=== PATIENT | male | born 1985 | race Hispanic/Latino ===

== ENCOUNTER → 2018-01-23 | Outpatient (CLI) | payer OTHER ==
[~2018-01-23] MED LIST: ASPI-1012 PO; DOCU-116 PO; DOXE10CA2 PO; DULO60CA63 PO; HYDR-3422 PO; HYDR-4068 PO; MORP15TA70 PO; PRAZ2CAP2 PO; TRAZ150T79 PO
== END | disposition home or self-care (01) ==
LOC: RAH 12:04
PROVIDERS: ATTEND Emergency Medicine Emergency Medical Services
DX: R51 Headache (principal); K21.9 Gastro-esophageal reflux disease without esophagitis; F41.1 Generalized anxiety disorder; G47.9 Sleep disorder, unspecified
CPT/HCPCS: 70551

== ENCOUNTER 2018-04-13 08:08 | Day surgery (SDC) | payer OTHER ==
[2018-04-12 16:03] VITALS: BP 122/90
[2018-04-12 16:08] LABS: BASOPHILS % (AUTO) 0.3 % (0.0-5.0); EOSINOPHILS % (AUTO) 1.1 % (0.0-8.0); LYMPHOCYTES % (AUTO) 23.6 % (21.0-51.0); MEAN CORPUSCULAR HEMOGLOBIN 29.1 pg (27.0-33.0); MEAN CORPUSCULAR HGB CONC 33.7 g/dL (32.0-36.0); MEAN CORPUSCULAR VOLUME 86.3 fL (79-99); PLATELET COUNT (AUTO) 287 K/uL (130-400); RED BLOOD CELL COUNT(AUTO) 5.22 MIL/uL (4.50-6.20); RED CELL DISTRIBUTION WIDTH 14.4 % (11.0-15.5); WHITE BLOOD COUNT (AUTO) 9.3 K/uL (4.8-10.8)
[2018-04-12 16:18] LABS: CREATININE 1.1 mg/dL (0.5-1.5); POTASSIUM 3.9 mmol/L (3.5-5.1)
[2018-04-13] VITALS (18 sets, daily range): BP systolic 113–138; BP diastolic 54–89
[~2018-04-13] VITALS: Ht 185.4 cm; Wt 100.6 kg
[~2018-04-13 08:08] MED LIST changes: -ASPI-1012 PO; +CEFAZOLIN 3GM /D5W 100ML 100 ML IV PRN; -DOCU-116 PO; -DOXE10CA2 PO; -DULO60CA63 PO; -HYDR-3422 PO; -MORP15TA70 PO; -PRAZ2CAP2 PO; -TRAZ150T79 PO
[2018-04-13] MEDS ORDERED: OMEP20CA10 PO (08:48)
[2018-04-13] MEDS ORDERED: LACTATED RINGERS 1000ML 1,000 ML IV ONE (08:57)
[2018-04-13] MEDS ORDERED: CEFAZOLIN SODIUM 1 GM VIAL ONE (08:58)
[2018-04-13] MEDS ORDERED: PROPOFOL 10 MG/ML 20ML VIAL IV ONE (10:26)
[2018-04-13] MEDS ORDERED: MIDAZOLAM HCL 1 MG/ML 2ML VIAL ONE (10:26)
[2018-04-13] MEDS ORDERED: FENTANYL CITRATE PF 50 MCG/1 ML 2ML VIAL ONE ×3 (10:27→11:37)
[2018-04-13] MEDS ORDERED: HYDR-305 PO (11:10)
[2018-04-13] MEDS ORDERED: NAPR-1192 PO (11:10)
[2018-04-13] MEDS ORDERED: CEPH500B PO (11:10)
[2018-04-13] MEDS ORDERED: MEPERIDINE-PF 25 MG/ML SYG ONE ×2 (11:29→12:01)
[2018-04-13] MEDS ORDERED: KETOROLAC TROMETHAMINE 30MG/ML ONE (11:43)
[2018-04-13] MEDS ORDERED: MORPHINE SULFATE 4 MG/1ML SYG ONE (11:51)
[2018-04-13] MEDS ORDERED: PROMETHAZINE HCL 25 MG/ML 1ML AMPULE IM ONE (12:02)
== END 2018-04-13 13:54 | disposition home or self-care (01) ==
LOC: DAH 08:08
PROVIDERS: ATTEND Orthopaedic Surgery
DX: M67.51 Plica syndrome, right knee (principal); Z96.652 Presence of left artificial knee joint; Z79.891 Long term (current) use of opiate analgesic; Z79.899 Other long term (current) drug therapy; Z87.891 Personal history of nicotine dependence; Z82.49 Family history of ischemic heart disease and other diseases of the circulatory system; Z68.31 Body mass index [BMI] 31.0-31.9, adult; Z98.890 Other specified postprocedural states; E66.9 Obesity, unspecified
CPT/HCPCS: 29875; 36415; 80048; 85025; A4218; A4606; A4649 ×2; A4930; A6223; J0690; J1885; J2175 ×2; J2250; J2270; J2550; J2704; J3010 ×3; J7120

== ENCOUNTER → 2019-06-07 | Outpatient (CLI) | payer OTHER ==
[~2019-06-07] MED LIST changes: -CEFAZOLIN 3GM /D5W 100ML 100 ML IV PRN; +CEPH500B PO; -HYDR-4068 PO; +HYDR-4453 PO; +IOHEXOL 350 MG/ML 100ML INFUS..BTL IV ONE; +NAPR-1192 PO; +OMEP-50 PO
== END | disposition home or self-care (01) ==
LOC: RAH 09:53
PROVIDERS: ATTEND Family Medicine
DX: R19.7 Diarrhea, unspecified (principal); Z90.49 Acquired absence of other specified parts of digestive tract
CPT/HCPCS: 74170; Q9967

== ENCOUNTER 2021-07-25 01:13 | Emergency (ER) | payer OTHER ==
[~2021-07-25] VITALS: Ht 182.9 cm; Wt 99.8 kg
[~2021-07-25 01:13] MED LIST changes: -IOHEXOL 350 MG/ML 100ML INFUS..BTL IV ONE; -OMEP-50 PO; +OMEP20CA12 PO
[2021-07-25 02:37] LABS: APPEARANCE,URINE Clear (CLEAR); BILIRUBIN,URINE Negative (NEGATIVE); COLOR,URINE Yellow (YELLOW); GLUCOSE, URINE (UA) Negative (NEGATIVE); KETONES,URINE Trace mg/dL (NEGATIVE); LEUKOCYTE ESTERASE ,URINE Negative (NEGATIVE); NITRATE,URINE Negative (NEGATIVE); OCCULT BLOOD,URINE Negative (NEGATIVE); PROTEIN,URINE Negative (NEGATIVE); UROBILINOGEN,URINE 0.2 mg/dL (0.2-1.0)
[2021-07-25 02:43] LABS: AMPHET/METH SCREEN,URINE NEGATIVE (NEGATIVE); BARBITURATE SCREEN, URINE NEGATIVE (NEGATIVE); BENZODIAZEPINES SCREEN,URINE NEGATIVE (NEGATIVE); CANNABINOID SCREEN,URINE NEGATIVE (NEGATIVE); COCAINE SCREEN,URINE NEGATIVE (NEGATIVE); OPIATE SCREEN,URINE NEGATIVE (NEGATIVE); PHENCYCLIDINE SCREEN,URINE NEGATIVE (NEGATIVE)
[2021-07-25 03:24] LABS: BASOPHILS % (AUTO) 0.3 % (0.0-5.0); HEMATOCRIT 36.6 % (42-54); MEAN CORPUSCULAR HEMOGLOBIN 25.9 pg (27.0-33.0); MEAN CORPUSCULAR HGB CONC 32.2 g/dL (32.0-36.0); MEAN CORPUSCULAR VOLUME 80.4 fL (79-99); MONOCYTES % (AUTO) 2.8 % (3.0-13.0); NEUTROPHILS % (AUTO) 80.7 % (40.0-77.0); PLATELET COUNT (AUTO) 356 K/uL (130-400); RED BLOOD CELL COUNT(AUTO) 4.55 MIL/uL (4.50-6.20); RED CELL DISTRIBUTION WIDTH 13.6 % (11.0-15.5); WHITE BLOOD COUNT (AUTO) 6.3 K/uL (4.8-10.8)
[2021-07-25] MEDS ORDERED: DiphenhydrAMINE HCL 50 MG/ML VIAL IV ONE ×2 (03:30→04:30)
[2021-07-25 03:53] LABS: CREATININE 1.2 mg/dL (0.5-1.5); POTASSIUM 3.6 mmol/L (3.5-5.1)
[2021-07-25 03:58] LABS: ALBUMIN 4.2 g/dL (3.5-5.0); BILIRUBIN,TOTAL 0.2 mg/dL (0.2-1.0); TOTAL PROTEIN, SERUM 8.8 g/dL (6.0-8.3)
[2021-07-25] MEDS ORDERED: FLUO20CA30 PO (04:16)
[2021-07-25] MEDS ORDERED: DIPH50 PO (04:17)
[2021-07-25 05:01] VITALS: BP 126/71
== END 2021-07-25 05:05 | disposition home or self-care (01) ==
LOC: EDH 01:13
DX: G24.01 Drug induced subacute dyskinesia (principal); F41.9 Anxiety disorder, unspecified; F32.A Depression, unspecified; F43.10 Post-traumatic stress disorder, unspecified; Z79.1 Long term (current) use of non-steroidal anti-inflammatories (NSAID); Z79.899 Other long term (current) drug therapy
CPT/HCPCS: 36415; 80053; 80305; 81003; 85025; 96374; 96376; 99284; J1200 ×2

== ENCOUNTER 2022-09-07 10:45 | Day surgery (SDC) | payer OTHER ==
[2022-09-06 14:57] LABS: EOSINOPHILS % (AUTO) 3.1 % (0.0-8.0); HEMATOCRIT 45.2 % (42-54); LYMPHOCYTES % (AUTO) 48.5 % (21.0-51.0); MEAN CORPUSCULAR HEMOGLOBIN 27.3 pg (27.0-33.0); MEAN CORPUSCULAR HGB CONC 33.2 g/dL (32.0-36.0); MEAN CORPUSCULAR VOLUME 82.3 fL (79-99); MONOCYTES % (AUTO) 8.1 % (3.0-13.0); NEUTROPHILS % (AUTO) 39.1 % (40.0-77.0); PLATELET COUNT (AUTO) 255 K/uL (130-400); RED BLOOD CELL COUNT(AUTO) 5.49 MIL/uL (4.50-6.20); RED CELL DISTRIBUTION WIDTH 12.5 % (11.0-15.5); WHITE BLOOD COUNT (AUTO) 4.9 K/uL (4.8-10.8)
[2022-09-06 15:04] LABS: CREATININE 1.1 mg/dL (0.5-1.5); POTASSIUM 4.4 mmol/L (3.5-5.1)
[2022-09-06 15:07] VITALS: BP 131/80
[2022-09-06 15:07] LABS: INR 0.98 (0.85-1.15); PROTHROMBIN TIME 10.7 SEC (9.6-11.6)
[2022-09-06 15:09] LABS: PARTIAL THROMBOPLASTIN TIME 30.1 SEC (26.3-35.5)
[~2022-09-07] VITALS: Ht 182.9 cm; Wt 100.4 kg
[2022-09-07] VITALS (17 sets, daily range): BP systolic 113–133; BP diastolic 76–88
[~2022-09-07 10:45] MED LIST changes: -CEPH500B PO; +ESCI20TA38 PO; +GABA-533 PO; -HYDR-4453 PO; +HYDR100C2 PO; -NAPR-1192 PO; -OMEP20CA12 PO; +OMEP40CA21 PO
[2022-09-07] MEDS ORDERED: LACTATED RINGERS 1000ML 1,000 ML IV ONE (11:17)
[2022-09-07] MEDS ORDERED: PROPOFOL 10 MG/ML 20ML VIAL IV ONE (11:47)
[2022-09-07] MEDS ORDERED: LIDOCAINE PF 100MG/5ML (2%) SYRINGE 5ML ONE (11:47)
[2022-09-07] MEDS ORDERED: ROCURONIUM 10MG/1ML SYR 10 MG/ML ML ONE (11:47)
[2022-09-07] MEDS ORDERED: MIDAZOLAM HCL 1 MG/ML 2ML VIAL ONE (11:47)
[2022-09-07] MEDS ORDERED: FENTANYL CITRATE PF 50 MCG/1 ML 2ML VIAL ONE ×2 (11:48→12:32)
[2022-09-07] MEDS ORDERED: CEFAZOLIN SODIUM 2 GM VIAL ONE (12:09)
[2022-09-07] MEDS ORDERED: CEFAZOLIN SODIUM 1 GM VIAL IVPB SCH (12:30)
[2022-09-07] MEDS ORDERED: ONDANSETRON 4MG INJ ONE ×2 (12:34→13:42)
[2022-09-07] MEDS ORDERED: DEXAMETHASONE SOD PHOSPHATE 10MG/ML 1ML VIAL ONE (12:34)
[2022-09-07] MEDS ORDERED: KETOROLAC 30MG VIAL (30MG/ML) ONE (12:53)
[2022-09-07] MEDS ORDERED: ROPIVACAINE 0.5% 5MG/ML 30ML IJ ONE (12:55)
[2022-09-07] MEDS ORDERED: NEOSTIGMINE 5MG/5ML SYR IV ONE (13:15)
[2022-09-07] MEDS ORDERED: GLYCOPYRROLATE 1 MG/5 ML SYRINGE ONE (13:15)
[2022-09-07] MEDS ORDERED: SCOPOLAMINE HYDROBROMIDE 1 EACH ADH..PATCH TD ONE (13:38)
[2022-09-07] MEDS ORDERED: MEPERIDINE-PF 25 MG/ML SYG ONE (13:42)
[2022-09-07] MEDS ORDERED: HYDROMORPHONE 1 MG INJ ONE (14:02)
== END 2022-09-07 15:30 | disposition home or self-care (01) ==
LOC: DAH 10:45
PROVIDERS: ATTEND Specialist
DX: T87.89 Other complications of amputation stump (principal); M25.562 Pain in left knee; F41.9 Anxiety disorder, unspecified; F32.A Depression, unspecified; E66.9 Obesity, unspecified; K21.9 Gastro-esophageal reflux disease without esophagitis; Z20.822 Contact with and (suspected) exposure to COVID-19; Y83.8 Other surgical procedures as the cause of abnormal reaction of the patient, or of later complication, without mention of misadventure at the time of the procedure; Z79.01 Long term (current) use of anticoagulants; Z79.899 Other long term (current) drug therapy; Z98.890 Other specified postprocedural states; Z87.891 Personal history of nicotine dependence; Z90.49 Acquired absence of other specified parts of digestive tract; Z68.30 Body mass index [BMI] 30.0-30.9, adult
CPT/HCPCS: 80048; 85025; 85610; 85730; 87426; 36415; 71045; 27594; 64447; A6260; A4663; A4606; A4452; A4344; J7120; J3010 ×2; J1170; J3490; J1100; J2710; J2001; J2250; J2704; J2405 ×2; J1885; J2175; J2795; J0690; A6223; A5113; A4215; A4223; A4222; A4221; A6450

== ENCOUNTER 2023-11-08 18:24 | Observation (INO) | payer OTHER ==
[~2023-11-08] VITALS: Ht 182.9 cm; Wt 100.8 kg
[~2023-11-08 18:24] MED LIST changes: -GABA-533 PO; +GABA-534 PO
[2023-11-08] MEDS: LORAZEPAM 2 MG/ML 1 ML VIAL IVP ONE (19:26)
[2023-11-08 19:34] LABS: BASOPHILS # (AUTO) 0.04 K/uL (0.00-0.20); BASOPHILS % (AUTO) 0.8 % (0.0-5.0); EOSINOPHILS # (AUTO) 0.18 K/uL (0.00-0.70); EOSINOPHILS % (AUTO) 3.6 % (0.0-8.0); HEMATOCRIT 39.9 % (42-54); IMMATURE GRANULOCYTE ABSOLUTE 0.02 K/uL (0-1); LYMPHOCYTES # (AUTO) 1.3 K/uL (1.0-4.8); LYMPHOCYTES % (AUTO) 26.3 % (21.0-51.0); MEAN CORPUSCULAR HEMOGLOBIN 31.5 pg (27.0-33.0); MEAN CORPUSCULAR HGB CONC 34.3 g/dL (32.0-36.0); MEAN CORPUSCULAR VOLUME 91.7 fL (79-99); MONOCYTES # (AUTO) 0.6 K/uL (0.1-1.0); MONOCYTES % (AUTO) 12.1 % (3.0-13.0); NEUTROPHILS # (AUTO) 2.9 K/uL (1.8-7.7); NEUTROPHILS % (AUTO) 56.8 % (40.0-77.0); PLATELET COUNT (AUTO) 200 K/uL (130-400); RED BLOOD CELL COUNT(AUTO) 4.35 MIL/uL (4.50-6.20); RED CELL DISTRIBUTION WIDTH 12.1 % (11.0-15.5); WHITE BLOOD COUNT (AUTO) 5.1 K/uL (4.8-10.8)
[2023-11-08 19:44] LABS: INR <= 0.93 (0.85-1.15); PROTHROMBIN TIME 10.3 SEC (9.6-11.6)
[2023-11-08 19:45] LABS: CREATININE 0.9 mg/dL (0.5-1.3); PARTIAL THROMBOPLASTIN TIME 30.8 SEC (26.3-35.5); POTASSIUM 3.9 mmol/L (3.5-5.1)
[2023-11-08 19:48] LABS: APPEARANCE,URINE CLEAR (CLEAR); BILIRUBIN,URINE NEGATIVE (NEGATIVE); COLOR,URINE COLORLESS (YELLOW); GLUCOSE, URINE (UA) NEGATIVE (NEGATIVE); KETONES,URINE NEGATIVE (NEGATIVE); LEUKOCYTE ESTERASE ,URINE NEGATIVE Leu/uL (NEGATIVE); NITRATE,URINE NEGATIVE (NEGATIVE); OCCULT BLOOD,URINE NEGATIVE (NEGATIVE); PROTEIN,URINE NEGATIVE (NEGATIVE); UROBILINOGEN,URINE 0.2 mg/dL (0.2-1.0)
[2023-11-08 19:49] LABS: ADD UA MICROSCOPIC NO
[2023-11-08 19:54] LABS: ALBUMIN 3.2 g/dL (3.5-5.0); BILIRUBIN,TOTAL 0.6 mg/dL (0.2-1.0); TOTAL PROTEIN, SERUM 7.2 g/dL (6.0-8.3)
[2023-11-08 20:04] LABS: B-TYPE NATRIURETIC PEPTIDE 12 pg/mL (0-100)
[2023-11-08] MEDS: KETOROLAC 15MG/ML VIAL (15MG/ML) IV ONE (22:59)
[2023-11-08] MEDS ORDERED: ONDANSETRON 4MG INJ IV PRN (23:30)
[2023-11-08] MEDS: 0.9%NACL 1000ML 1,000 ML IV SCH (23:31)
[2023-11-09] VITALS (9 sets, daily range): BP systolic 92–130; BP diastolic 60–87; PULSE 70–90; RESP 17–20; O2SAT 97–98
[2023-11-09 00:57] LABS: AMPHET/METH SCREEN,URINE NEGATIVE (NEGATIVE); BARBITURATE SCREEN, URINE NEGATIVE (NEGATIVE); BENZODIAZEPINES SCREEN,URINE POSITIVE (NEGATIVE); CANNABINOID SCREEN,URINE NEGATIVE (NEGATIVE); COCAINE SCREEN,URINE NEGATIVE (NEGATIVE); OPIATE SCREEN,URINE NEGATIVE (NEGATIVE); PHENCYCLIDINE SCREEN,URINE NEGATIVE (NEGATIVE)
[2023-11-09] MEDS: KETOROLAC 30MG VIAL (30MG/ML) IVP PRN (02:33)
[2023-11-09 06:51] LABS: BASOPHILS # (AUTO) 0.03 K/uL (0.00-0.20); BASOPHILS % (AUTO) 0.6 % (0.0-5.0); EOSINOPHILS # (AUTO) 0.19 K/uL (0.00-0.70); EOSINOPHILS % (AUTO) 3.5 % (0.0-8.0); HEMATOCRIT 36.9 % (42-54); IMMATURE GRANULOCYTE ABSOLUTE 0.01 K/uL (0-1); LYMPHOCYTES # (AUTO) 1.7 K/uL (1.0-4.8); LYMPHOCYTES % (AUTO) 31.4 % (21.0-51.0); MEAN CORPUSCULAR HEMOGLOBIN 30.6 pg (27.0-33.0); MEAN CORPUSCULAR HGB CONC 33.6 g/dL (32.0-36.0); MEAN CORPUSCULAR VOLUME 91.1 fL (79-99); MONOCYTES # (AUTO) 0.9 K/uL (0.1-1.0); MONOCYTES % (AUTO) 15.8 % (3.0-13.0); NEUTROPHILS # (AUTO) 2.7 K/uL (1.8-7.7); NEUTROPHILS % (AUTO) 48.5 % (40.0-77.0); PLATELET COUNT (AUTO) 197 K/uL (130-400); RED BLOOD CELL COUNT(AUTO) 4.05 MIL/uL (4.50-6.20); RED CELL DISTRIBUTION WIDTH 12.3 % (11.0-15.5); WHITE BLOOD COUNT (AUTO) 5.5 K/uL (4.8-10.8)
[2023-11-09 07:20] LABS: AMMONIA < 10 umol/L (11-32)
[2023-11-09 07:21] LABS: ALANINE AMINOTRANSFERASE 109 U/L (12-78); ALBUMIN 2.9 g/dL (3.5-5.0); ASPARTATE AMINOTRANSFERASE 43 U/L (10-37); BILIRUBIN,TOTAL 0.6 mg/dL (0.2-1.0); CARBON DIOXIDE 34 mmol/L (21-32); CHLORIDE 102 mmol/L (101-111); GLOMERULAR FILTR. RATE CALC 98 mL/min (>90); GLUCOSE,RANDOM 99 mg/dL (70-105); POTASSIUM 4.7 mmol/L (3.5-5.1); SODIUM SERUM 141 mmol/L (136-145); THYROID STIMULATING HORMONE 2.34 uIU/mL (0.36-3.74); TOTAL PROTEIN, SERUM 6.6 g/dL (6.0-8.3); UREA NITROGEN, BLOOD 6 mg/dL (7-18)
[2023-11-09 07:26] LABS: WBC MORPHOLOGY Y
[2023-11-09] MEDS ORDERED: IOHEXOL-350 75 ML VIAL IV ONE ×2 (08:19→13:19)
[2023-11-09] MEDS: FAMOTIDINE 20MG VIAL IV SCH (08:47)
[2023-11-09] MEDS: LORAZEPAM 2 MG/ML 1 ML VIAL IM ONE (12:21)
[2023-11-09] MEDS: KETOROLAC 15MG/ML VIAL (15MG/ML) IV PRN (12:51)
[2023-11-09] MEDS: LORAZEPAM 2 MG/ML 1 ML VIAL IVP PRN (14:41)
[2023-11-10] VITALS (9 sets, daily range): BP systolic 119–138; BP diastolic 71–97; PULSE 67–90; RESP 18–20; O2SAT 95–98
[2023-11-11 04:00] VITALS: BP 125/91; PULSE 75; RESP 19
[2023-11-11 05:09] LABS: HEMATOCRIT 34.4 % (42-54); MEAN CORPUSCULAR HGB CONC 35.5 g/dL (32.0-36.0); MEAN CORPUSCULAR VOLUME 87.5 fL (79-99); RED BLOOD CELL COUNT(AUTO) 3.93 MIL/uL (4.50-6.20); RED CELL DISTRIBUTION WIDTH 11.9 % (11.0-15.5); WHITE BLOOD COUNT (AUTO) 5.4 K/uL (4.8-10.8)
[2023-11-11 05:12] LABS: CREATININE 0.8 mg/dL (0.5-1.3); POTASSIUM 3.7 mmol/L (3.5-5.1)
[2023-11-11 07:18] VITALS: BP 118/78; PULSE 73; RESP 19
[2023-11-11 08:10] VITALS: O2SAT 99
[2023-11-11] MEDS ORDERED: BUPR100T13 PO (09:41)
[2023-11-11 11:07] VITALS: BP 109/72; PULSE 68; RESP 18
== END 2023-11-11 14:33 | disposition home or self-care (01) ==
LOC: EDH 18:24 → EDHIP 23:13 → 3BH 11-09 00:23
PROVIDERS: ADMIT Emergency Medicine; ATTEND Emergency Medicine
DX: R13.10 Dysphagia, unspecified (principal); G43.109 Migraine with aura, not intractable, without status migrainosus; E87.1 Hypo-osmolality and hyponatremia; D64.9 Anemia, unspecified; R74.01 Elevation of levels of liver transaminase levels; F32.A Depression, unspecified; R53.81 Other malaise; F43.10 Post-traumatic stress disorder, unspecified; F41.9 Anxiety disorder, unspecified; Z79.899 Other long term (current) drug therapy; Z90.49 Acquired absence of other specified parts of digestive tract; Z96.651 Presence of right artificial knee joint; Z89.612 Acquired absence of left leg above knee; Z86.2 Personal history of diseases of the blood and blood-forming organs and certain disorders involving the immune mechanism; W19.XXXA Unspecified fall, initial encounter; Y93.89 Activity, other specified; Y92.098 Other place in other non-institutional residence as the place of occurrence of the external cause; Y99.8 Other external cause status
CPT/HCPCS: 96374; 96361 ×3; 96375 ×2; 99285; 82550; 83721; 84484; 80053 ×2; 83880; 80305; 85025 ×2; 85610; 85730; 82948; 81003; 36415 ×3; 71045; 70450; 93005; 96376 ×3; 96372; 84443; 83735; 82140; 70496; 70498; 74230; 92610; 92611; 80048; 85027; G0378 ×62; J7030; J2060 ×3; J1885 ×5; J3490 ×5; Q9967; 70551; 70553

== ENCOUNTER → 2024-01-25 | Outpatient (CLI) | payer OTHER ==
[~2024-01-25] MED LIST changes: +BUPR100T13 PO; +IOHEXOL-350 75 ML VIAL IV ONE
== END | disposition home or self-care (01) ==
LOC: RAH 10:22
PROVIDERS: ATTEND Surgery
DX: K44.9 Diaphragmatic hernia without obstruction or gangrene (principal); K66.0 Peritoneal adhesions (postprocedural) (postinfection); R10.13 Epigastric pain; Z90.49 Acquired absence of other specified parts of digestive tract
CPT/HCPCS: 74177; Q9967

== ENCOUNTER 2024-03-14 06:35 | Observation (INO) | payer OTHER ==
[2024-03-12 15:30] LABS: BASOPHILS # (AUTO) 0.03 K/uL (0.00-0.20); BASOPHILS % (AUTO) 0.8 % (0.0-5.0); EOSINOPHILS # (AUTO) 0.13 K/uL (0.00-0.70); EOSINOPHILS % (AUTO) 3.3 % (0.0-8.0); HEMATOCRIT 43.8 % (42-54); LYMPHOCYTES # (AUTO) 1.6 K/uL (1.0-4.8); LYMPHOCYTES % (AUTO) 40.7 % (21.0-51.0); MEAN CORPUSCULAR HEMOGLOBIN 30.3 pg (27.0-33.0); MEAN CORPUSCULAR HGB CONC 34.7 g/dL (32.0-36.0); MEAN CORPUSCULAR VOLUME 87.4 fL (79-99); MONOCYTES # (AUTO) 0.4 K/uL (0.1-1.0); NEUTROPHILS # (AUTO) 1.8 K/uL (1.8-7.7); NEUTROPHILS % (AUTO) 46.2 % (40.0-77.0); PLATELET COUNT (AUTO) 259 K/uL (130-400); RED BLOOD CELL COUNT(AUTO) 5.01 MIL/uL (4.50-6.20); WHITE BLOOD COUNT (AUTO) 3.9 K/uL (4.8-10.8)
[2024-03-12 15:31] VITALS: BP 113/77; PULSE 67; RESP 18
[2024-03-12 15:43] LABS: INR 0.96 (0.85-1.15); PROTHROMBIN TIME 10.4 SEC (9.6-11.6)
[2024-03-12 15:44] LABS: PARTIAL THROMBOPLASTIN TIME 29.7 SEC (26.3-35.5)
[2024-03-12 15:46] LABS: ALBUMIN 3.9 g/dL (3.5-5.0); BILIRUBIN,TOTAL 0.8 mg/dL (0.2-1.0); POTASSIUM 4.2 mmol/L (3.5-5.1); TOTAL PROTEIN, SERUM 7.7 g/dL (6.0-8.3)
[2024-03-14] VITALS (31 sets, daily range): BP systolic 99–134; BP diastolic 60–91; PULSE 54–100; RESP 13–20; O2SAT 99
[~2024-03-14] VITALS: Ht 182.9 cm; Wt 96.4 kg
[~2024-03-14 06:35] MED LIST changes: -BUPR100T13 PO; -ESCI20TA38 PO; -GABA-534 PO; -HYDR100C2 PO; -IOHEXOL-350 75 ML VIAL IV ONE; +vitamin d PO
[2024-03-14] MEDS: MEROPENEM 1 GM VIAL ONE (06:37)
[2024-03-14] MEDS: LACTATED RINGERS 1000ML 1,000 ML IV ONE (06:38)
[2024-03-14] MEDS ORDERED: SCOPOLAMINE HYDROBROMIDE 1 EACH ADH..PATCH TD ONE (07:11)
[2024-03-14] MEDS ORDERED: acetaMINOPHEN 1,000 MG/100 ML VIAL IV ONE (07:11)
[2024-03-14] MEDS ORDERED: FAMOTIDINE 20MG VIAL IV ONE (07:11)
[2024-03-14] MEDS ORDERED: KETAMINE 50MG/ML SYRINGE 50 MG/ML DISP.SYRIN ONE (07:14)
[2024-03-14] MEDS ORDERED: FENTanyl CITRate PF 50 MCG/1 ML 2ML VIAL ONE (07:20)
[2024-03-14] MEDS ORDERED: rocuRONium bROMide 10MG/1ML 5ML VL ONE ×2 (07:20→08:48)
[2024-03-14] MEDS ORDERED: proPOFol 10 MG/ML 20ML VIAL IV ONE (07:20)
[2024-03-14] MEDS ORDERED: LIDOCAINE PF 100MG/5ML (2%) SYRINGE 5ML ONE ×2 (07:20→09:16)
[2024-03-14] MEDS ORDERED: BUPIvacaine/PF 0.25% 30ML VIAL IJ ONE (07:31)
[2024-03-14] MEDS ORDERED: MIDAZOLAM HCL 1 MG/ML 2ML VIAL ONE (08:19)
[2024-03-14] MEDS: MEROPENEM 1 GM VIAL IVPB ONE (08:30)
[2024-03-14] MEDS ORDERED: PHENYLEPHRINE HCL 10 MG/ML 1ML VIAL IV ONE (09:01)
[2024-03-14] MEDS ORDERED: GLYCOPYRROLATE 0.2 MG/ML 5 ML VIAL ONE ×2 (09:01→09:02)
[2024-03-14] MEDS ORDERED: ePHEDrine SULFate 50 MG/ML AMPULE ONE (09:02)
[2024-03-14] MEDS ORDERED: ONDANSETRON 4MG INJ ONE (09:04)
[2024-03-14] MEDS ORDERED: dexaMETHasone SOD PHOSPHATE 10MG/ML 1ML VIAL ONE (09:04)
[2024-03-14] MEDS ORDERED: NEOSTIGMINE METHYLSULFATE 1MG/ML IV ONE (09:43)
[2024-03-14] MEDS ORDERED: PROCHLORPERAZINE 10MG/2ML INJ IV PRN (10:00)
[2024-03-14] MEDS ORDERED: ONDANSETRON 4MG INJ IVP PRN (10:00)
[2024-03-14] MEDS ORDERED: KETOROLAC 30MG VIAL (30MG/ML) IV PRN (10:00)
[2024-03-14] MEDS: ENOXAPARIN SODIUM 40 MG/0.4 ML SYRINGE SQ SCH (10:30)
[2024-03-14] MEDS: MEPERIDINE-PF 25 MG/ML SYG ONE (10:33)
[2024-03-14] MEDS: ONDANSETRON 4MG INJ ONE (10:33)
[2024-03-14] MEDS: LACTATED RINGERS 1000ML 1,000 ML IV SCH (13:10)
[2024-03-14] MEDS: hydroMORPHone 1 MG INJ IVP PRN (14:40)
[2024-03-14] MEDS: FAMOTIDINE 20MG VIAL IV SCH (20:15)
[2024-03-14] MEDS: HYDROCODONE/ACETAMINOPHEN 7.5/325 MG 15 ML UDCUP PO PRN (20:15)
[2024-03-15] VITALS: BP 124/77; PULSE 89; RESP 18
[2024-03-15 04:00] VITALS: BP 119/86; PULSE 64; RESP 19
[2024-03-15 08:00] VITALS: O2SAT 97
[2024-03-15 08:27] VITALS: BP 121/74; PULSE 61; RESP 18
[2024-03-15 12:03] VITALS: BP 120/80; PULSE 66; RESP 17
[2024-03-15 17:01] VITALS: BP 132/96; PULSE 75; RESP 17
[2024-03-15] MEDS: SIMETHICONE 80 MG TAB.CHEW PO SCH (17:58)
[2024-03-15] MEDS: traMADol /APAP 37.5MG/325MG TAB PO ONE (18:09)
== END 2024-03-15 19:00 | disposition home or self-care (01) ==
LOC: DAH 06:35 → INTOOBSV 06:36 → DAH 06:36 → 4DH 06:36
PROVIDERS: ADMIT Surgery; ATTEND Surgery
DX: K44.0 Diaphragmatic hernia with obstruction, without gangrene (principal); K66.0 Peritoneal adhesions (postprocedural) (postinfection); K29.50 Unspecified chronic gastritis without bleeding; R63.4 Abnormal weight loss; K21.9 Gastro-esophageal reflux disease without esophagitis; F41.9 Anxiety disorder, unspecified; F32.A Depression, unspecified; R12 Heartburn; Z68.28 Body mass index [BMI] 28.0-28.9, adult; Z90.49 Acquired absence of other specified parts of digestive tract; Z86.2 Personal history of diseases of the blood and blood-forming organs and certain disorders involving the immune mechanism; Z79.899 Other long term (current) drug therapy
CPT/HCPCS: 80053; 85025; 85610; 85730; 86850; 86900; 86901; 36415; 93005; 43282; 96374; 96372; 96375; 97161; 97116; 96376; A6260; A4663; A4215 ×2; J7120; J3490 ×9; J3010; J1170 ×2; J1100; J0665 ×2; J2001 ×2; J2250; J2704; J2405 ×2; J2710; J1650 ×2; J2175; J2371; J2185 ×2; G0168; A4930 ×3; C1781; A4223 ×2; A4222; A4221; A4216; A4600; G0378 ×3; 43235; G8980-CI; G8983-CI

== ENCOUNTER → 2024-05-09 | Outpatient (CLI) | payer OTHER ==
[~2024-05-09] MED LIST changes: +DIATR MEGLU/DIATRIZOATE SODIUM 30 ML BOTTLE ONE
== END | disposition home or self-care (01) ==
LOC: RAH 09:08
PROVIDERS: ATTEND Surgery
DX: K44.9 Diaphragmatic hernia without obstruction or gangrene (principal); Z90.49 Acquired absence of other specified parts of digestive tract
CPT/HCPCS: 74240; Q9963